=== PATIENT | male | born 1955 | race Caucasian/White ===

== ENCOUNTER 2017-12-31 12:49 | Emergency (ER) | payer BC ==
[2017-12-31] MEDS ORDERED: LIDOCAINE 1% INJ-PF (10 MG/ML) 30 ML SDV INJ ONE (13:21)
--- NOTE | 2017-12-31 13:50 | ER Document Report ---
ED General - General Chief Complaint: Abscess Stated Complaint: ABSCESS/BACK OF NECK Time Seen by Provider: 12/31/17 13:21 Mode of Arrival: Ambulatory Information source: Patient Notes: 62-year-old male presents with an abscess to the back of his neck, patient notes that he had that here in the back of his neck cut with a straight razor approximately a week ago in the area since gotten larger. He denies any fevers denies any neurological deficits denies any numbness or weakness TRAVEL OUTSIDE OF THE [place] IN LAST 30 DAYS: No - HPI Onset: Last week Onset/Duration: Persistent, Worse Quality of pain: Achy, Pressure Severity: Mild Pain Level: 1 Associated symptoms: Other Exacerbated by: Movement Relieved by: Denies Similar symptoms previously: No Recently seen / treated by doctor: No - Related Data Allergies/Adverse Reactions: No Known Allergies Allergy (Verified 12/31/17 12:52) Past Medical History - Social History Smoking Status: Never Smoker Cigarette use (# per day): No Chew tobacco use (# tins/day): No Smoking Education Provided: No Family History: Reviewed & Not Pertinent - Past Medical History Cardiac Medical History: Reports: Hx Hypertension Renal/ Medical History: Reports: Hx Kidney Stones - Immunizations Hx Diphtheria, Pertussis, Tetanus Vaccination: Yes Review of Systems - Review of Systems Notes: REVIEW OF SYSTEMS: CONSTITUTIONAL : Denies fever, chills, or sweats. Denies recent illness. EENT: Denies eye, ear, throat, or mouth pain or symptoms. Denies nasal or sinus congestion or discharge. Denies throat, tongue, or mouth swelling or difficulty swallowing. CARDIOVASCULAR: Denies chest pain. Denies palpitations or racing or irregular heart beat. Denies ankle edema. RESPIRATORY: Denies cough, cold, or chest congestion. Denies shortness of breath, difficulty breathing, or wheezing. GASTROINTESTINAL: Denies abdominal pain or distention. Denies nausea, vomiting , or diarrhea. Denies blood in vomitus, stools, or per rectum. Denies black, tarry stools. Denies constipation. GENITOURINARY: Denies difficulty urinating, painful urination, burning, frequency, blood in urine, or discharge. MUSCULOSKELETAL: Denies back or neck pain or stiffness. Denies joint pain or swelling. SKIN: Abscess back of neck HEMATOLOGIC : Denies easy bruising or bleeding. LYMPHATIC: Denies swollen, enlarged glands. NEUROLOGICAL: Denies confusion or altered mental status. Denies passing out or loss of consciousness. Denies dizziness or lightheadedness. Denies headache. Denies weakness or paralysis or loss of use of either side. Denies problems with gait or speech. Denies sensory loss, numbness, or tingling. Denies seizures. PSYCHIATRIC: Denies anxiety or stress. Denies depression, suicidal ideation, or homicidal ideation. ALL OTHER SYSTEMS REVIEWED AND NEGATIVE. Dictation was performed using [employer] voice recognition software PHYSICAL EXAMINATION: GENERAL: Well-appearing, well-nourished and in no acute distress. HEAD: Atraumatic, normocephalic. EYES: Pupils equal round extraocular movements intact, conjunctiva are normal. ENT: Nares patent NECK: Normal range of motion LUNGS: No respiratory distress Musculoskeletal: Normal range of motion NEUROLOGICAL: Normal speech, normal gait. No neurological deficits full range of motion of upper extremities PSYCH: Normal mood, normal affect. SKIN: Abscess measuring 8 x 6 cm posterior cervical region fluctuant erythematous tender Physical Exam - Vital signs Vitals: Temp Pulse Resp BP Pulse Ox 98.6 F 94 16 196/109 H 98 12/31/17 13:05 12/31/17 13:05 12/31/17 13:05 12/31/17 13:05 12/31/17 13:05 Course - Re-evaluation Re-evalutation: 12/31/17 15:32 After anesthetizing the area I incised and drained a very large cervical posterior abscess with large amount of pus, it was packed, patient will be placed on antibiotics, I wish for him to return to see me in 3 days to remove the packing, the area is not affecting the meninges or spinal cord at this time however if the symptoms do worsen patient has been instructed he must return immediately for reevaluation he states he understands and will do so After performing a Medical Screening Examination, I estimate there is LOW risk for OPEN FRACTURE, COMPARTMENT SYNDROME, TENDON RUPTURE, ACUTE NEUROVASCULAR INJURY, or RETAINED FOREIGN BODY, thus I consider the discharge disposition reasonable. Also, there is no evidence or peritonitis, sepsis, or toxicity. I have reevaluated this patient multiple times and no significant life threatening changes are noted. The patient and I have discussed the diagnosis and risks, and we agree with discharging home with close follow-up with the understanding that symptoms and presentations can change. We also discussed returning to the Emergency Department immediately if new or worsening symptoms occur. We have discussed the symptoms which are most concerning (e.g., changing or worsening pain, fever, numbness, weakness, cool or painful digits) that necessitate immediate return. - Vital Signs Vital signs: Temp Pulse Resp BP Pulse Ox 98.6 F 86 16 180/100 H 99 12/31/17 14:17 12/31/17 14:17 12/31/17 14:17 12/31/17 14:17 12/31/17 14:17 Procedures - Incision and Drainage Posterior Neck Time completed: 13:00 Type: Single Anesthetic type: 1% Lidocaine mL's of anesthetic: 10 Blade size: 11 I&D procedure: Betadine prep applied, Iodoform packing placed, Sterile dressing applied Incision Method: Incision made by scalpel Amount/type of drainage: very large abscess with large pus Discharge - Discharge Clinical Impression: Abscess, neck Condition: Stable Disposition: HOME, SELF-CARE Instructions: Abscess ([facility]), Post Incision and Drainage Additional Instructions: Please return in 3 days for reevaluation by myself or immediately if there is any sign of infection or any other concerns Prescriptions: Acetaminophen with Codeine [Tylenol #3 Tablet] 1 each PO Q4HP PRN #14 tablet PRN Reason: Cephalexin Monohydrate [Keflex 500 mg Capsule] 500 mg PO QID #40 capsule Sulfamethoxazole/Trimethoprim [Bactrim Ds Tablet] 2 each PO BID #40 tablet
[2017-12-31 14:18] VITALS: BP 180/100
== END 2017-12-31 14:18 | disposition home or self-care (01) ==
LOC: ER 12:49
DX: L02.11 Cutaneous abscess of neck (principal); I10 Essential (primary) hypertension
CPT/HCPCS: 99283; 87070; 87205; 87075; 87077; 87186; 10060; J3490